=== PATIENT | female | born 1960 | race Caucasian/White ===

== ENCOUNTER 2020-09-30 12:23 | Outpatient (REF) | payer OTHER, SELFPAY ==
--- NOTE | 2020-09-30 | MM_ITS ---
EXAMINATION: MM SCREENING DIGITAL BREAST TOMOSYNTHESIS, BILATERAL CLINICAL INFORMATION: Screening. Asymptomatic. The lifetime risk of breast cancer based on the Tyrer-Cuzick Model is 5.8%. COMPARISON: Mammography: Of study of June 19, 2007 without imaging. TECHNIQUE: Digital breast tomosynthesis is performed in both the craniocaudal and mediolateral oblique views along with computer-aided detection (CAD). Synthesized 2D images are generated from the tomosynthesis. FINDINGS: There are scattered areas of fibroglandular density (ACR BI-RADS breast composition Category b). Within the middle aspect of the right breast 1 study inferior and the other measuring approximately 5 mm in diameter and lying between 3 and 4 cm from the nipple. Within the deep aspect of the left breast there are medial and lateral densities measuring approximately 5 mm in diameter. Spot compression films and probable ultrasound recommended bilaterally. MM/MM tomosynthesis screening BI IMPRESSION: Bilateral breast densities for further evaluation as described. ASSESSMENT: BI-RADS 0: Incomplete - Need Additional Imaging Evaluation RECOMMENDATION: 1. Additional views of the bilateral breasts 2. Targeted ultrasound if warranted after review of the additional views. 3. Radiology department staff will contact the patient for additional imaging. This patient's information was entered into a reminder system with a target due date for their next mammogram.
== END 2020-09-30 12:24 | disposition home or self-care (01) ==
LOC: HO.MAMMO 12:23
PROVIDERS: PCP Family Medicine; Visit Provider Family Medicine
DX: Z12.31 Encounter for screening mammogram for malignant neoplasm of breast (principal)
CPT/HCPCS: 77063; 77067

== ENCOUNTER 2020-10-17 11:52 | Outpatient (REF) | payer OTHER, SELFPAY ==
--- NOTE | 2020-10-17 12:06 | MM_ITS ---
EXAMINATION: MM DIAGNOSTIC DIGITAL BREAST TOMOSYNTHESIS, BILATERAL US DIAGNOSTIC ULTRASOUND BREAST, BILATERAL CLINICAL INFORMATION: Recall from mammography 09/30/2020 for bilateral asymmetric densities. Prior mammography 2006 purged. The lifetime risk of breast cancer based on the Tyrer-Cuzick Model is 6%. COMPARISON: Digital breast tomosynthesis 09/30/2020, ultrasound left breast 08/03/2011; report screening mammography (purged images) 06/19/2007. TECHNIQUE: Digital breast tomosynthesis is performed. Synthesized 2D images are generated from the tomosynthesis. The following views are obtained: Left spot CC x2, left spot MLO, right spot CC, right spot MLO. Ultrasound is performed targeted to the areas of recent imaging concern using grayscale imaging and color Doppler without and with harmonics. The left breast is imaged in 8:00 through 10:00 position. The right breast is imaged 2:00 through 4:00 and 9:00 through 10:00. FINDINGS: There are scattered areas of fibroglandular density (ACR BI-RADS breast composition Category b). Additional views left breast show no persistent nodular asymmetric density outer breast. Review of the recent mammography suggested intramammary node, not seen on the additional views. The nodule noted recently overlying the posterior medial left breast corresponds to a dermal lesion, confirmed with mole marker. Additional views right breast show fibronodular parenchymal pattern without significant isolated mass or architectural abnormality or focal duct ectasia. Ultrasound left breast demonstrates no cystic or solid mass, intramammary node, or focal duct ectasia. Ultrasound right breast demonstrates some scattered small cysts under 7 mm. No visible solid mass or architectural abnormality or focal duct ectasia. Results are discussed with the patient at time of visit. Patient notes prior more recent outside mammography at [facility] and possibly at [facility]. Radiology department staff will attempt to retrieve prior outside exams to allow for comparison in an addendum report. If the prior outside exams are unable to be retrieved, then bilateral follow-up diagnostic mammography would be suggested to confirm stability of otherwise new baseline mammography. MM/MM tomosynthesis diagnostic BI IMPRESSION: 1. Fibronodular parenchymal pattern without suspicious finding on additional imaging. 2. Incidental dermal lesion overlying posterior medial left breast corresponding to nodularity noted on recent screening mammography. ASSESSMENT: BI-RADS 3: Probably Benign RECOMMENDATION: 1. Radiology department will attempt to retrieve prior outside mammography to allow for comparison in an addendum report. 2. Otherwise, bilateral diagnostic mammography in 6 months. This patient's information was entered into a reminder system with a target due date for their next mammogram.
== END 2020-10-17 11:53 | disposition home or self-care (01) ==
LOC: HO.MAMMO 11:52
PROVIDERS: PCP Family Medicine; Visit Provider Family Medicine
DX: R92.8 Other abnormal and inconclusive findings on diagnostic imaging of breast (principal)
CPT/HCPCS: 76642; 77062; 77066

== ENCOUNTER → 2020-10-22 08:55 | Outpatient (BNVA) | payer OTHER, SELFPAY | PROVIDERS: Visit Provider Physician Assistant | DX: Z76.89 Persons encountering health services in other specified circumstances (principal) ==

== ENCOUNTER 2020-12-16 12:20 | Outpatient (REF) | payer MEDICARE, SELFPAY ==
--- NOTE | 2020-12-16 12:26 | XR_ITS ---
EXAMINATION: XR HIPS, BILATERAL CLINICAL INFORMATION: Pain. COMPARISON: None TECHNIQUE: Bilateral hips each 2 views. FINDINGS: RIGHT HIP: Normal alignment. No fracture or dislocation. Joint space is maintained. Visualized left hemipelvis is intact. LEFT HIP: Normal alignment. Joint space is maintained. No fracture or dislocation. Visualized pelvis is intact. XR/XR hip LT min 2V IMPRESSION: No evidence of acute osseous abnormality.
--- NOTE | 2020-12-16 12:26 | XR_ITS ---
EXAMINATION: XR HIPS, BILATERAL CLINICAL INFORMATION: Pain. COMPARISON: None TECHNIQUE: Bilateral hips each 2 views. FINDINGS: RIGHT HIP: Normal alignment. No fracture or dislocation. Joint space is maintained. Visualized left hemipelvis is intact. LEFT HIP: Normal alignment. Joint space is maintained. No fracture or dislocation. Visualized pelvis is intact. XR/XR hip RT min 2V IMPRESSION: No evidence of acute osseous abnormality.
== END 2020-12-16 12:21 | disposition home or self-care (01) ==
LOC: HO.XRAY 12:20
PROVIDERS: Visit Provider Family Medicine
DX: M25.551 Pain in right hip (principal); M25.552 Pain in left hip
CPT/HCPCS: 73502

== ENCOUNTER 2020-12-22 11:08 | Day surgery (SDC) | payer MEDICARE, SELFPAY ==
--- NOTE | 2020-12-19 10:33 | HO.ANESPROP2 ---
Documented by User: Mirian Cleveland 12/19/20 10:33 HPI - Anesthesia Eval Consult details Narrative: 60yo F for Upper Endoscopy and Colonoscopy [facility] Past Medical History Medical History Chronic GERD Family history of colon cancer in mother Family history of gastric cancer Neck fracture Family History Family History Mother Colon cancer Surgical History Surgical History H/O colonoscopy H/O: hysterectomy Social History Social History Smoking Status: Current every day smoker Tobacco Type: Cigarette Advance Directives: Yes Advance Directives Information Provided: Yes Advance Directives on File: No Current occupational status: disabled Meds Allergies Allergy/AdvReac Type Severity Reaction Status Date / Time No Known Allergies Allergy Verified 10/22/20 13:36 Home Medications Medication Instructions Recorded Confirmed Type cyclobenzaprine 5 mg tablet 5 mg PO BEDTIME 10/22/20 12/16/20 History omeprazole magnesium 20 mg 20 mg PO DAILY 10/22/20 12/16/20 History tablet,delayed release Exam Exam Date and Time: December 19, 2020 1033 Assessment and Plan Assessment Anesthesia Assessment: Chart Reviewed Documented by User: Kristin Cummings 12/22/20 11:43 [facility] Past Medical History Medical History Chronic GERD Family history of colon cancer in mother Family history of gastric cancer Neck fracture Family History Family History Mother Colon cancer Surgical History Surgical History H/O colonoscopy H/O: hysterectomy Social History Social History Smoking Status: Current every day smoker Tobacco Type: Cigarette Advance Directives: Yes Advance Directives Information Provided: Yes Advance Directives on File: No Current occupational status: disabled Meds Allergies Allergy/AdvReac Type Severity Reaction Status Date / Time No Known Allergies Allergy Verified 10/22/20 13:36 Home Medications Medication Instructions Recorded Confirmed Type cyclobenzaprine 5 mg tablet 5 mg PO BEDTIME 10/22/20 12/16/20 History omeprazole magnesium 20 mg 20 mg PO DAILY 10/22/20 12/16/20 History tablet,delayed release Exam Airway Mallampati Class: II TM Dist: >3cm Neck ROM: Full Assessment and Plan Assessment Anesthesia Assessment: Anesthesia Plan Discussed, Smoking Cess. Discussed and Chart Reviewed Final Anesthetic Review NPO: Yes ASA Class: II Final Preanesthetic Review: No Changes in Pt Med Stat, Meds/Allgs Chart Reviewed, Consent Obtained/Reviewed and Anes Risks/Benef Reviewed Patient Risk: Intermediate Procedure Risk: Low Assessment/Block/Sedation in SS: Assess/Block/Sedation-SS Anesthetic Plan Anesthetic Plan: MAC: Disposition: Standard PACU
[2020-12-22 11:31] VITALS: BP 100/60; PULSE 108; RESP 20; TEMP 36.7; O2SAT 95; BMI 20.5
--- NOTE | 2020-12-22 11:35 | W.PM.OPN ---
Operative Note Operative Note Date of Service: 12/25/20 Narrative: Pre-op diagnosis: Colon cancer screening, family history of colon cancer (Mom in her 50's or 60's), epigastric pain, family history of stomach cancer (mom in her 70's) Procedure: FLEXIBLE TRANSORAL UPPER GASTROINTESTINAL ENDOSCOPY WITH BIOPSIES AND COLONOSCOPY TO CECUM UPPER ENDOSCOPY Consent: Indications for the procedure and potential complications of bleeding, perforation, reaction to medications and missed diagnosis were discussed with the patient and informed consent was obtained. Instrument: Olympus GIF H 190 mid size upper endoscope Monitoring: Vital signs and clinical assessment, continuous EKG monitoring, Pulse oximetry, Carbon Dioxide monitoring and blood pressure monitoring were done throughout the procedure. Procedure: The patient was placed in the left lateral decubitis position and pre-procedure medications were administered and a bite block was placed. The endoscope was inserted into the mouth and advanced under direct vision to the third part of duodenum. A careful inspection was made as the upper endoscope was withdrawn including a retroflexed examination of the proximal stomach; Findings and interventions are described below. Findings: Esophagus: GE junction at 35. No esophagitis or Mclean's. Stomach: A 1.5 cms benign appearing antral nodule with central erosion in the pre-pyloric area - biopsied. Mild gastric erythema with a few antral erosions. Biopsies were obtained. Grade 2 flap valve on retroflexed examination of the cardia. Duodenum: Normal bulb and descending duodenum Intervention: Biopsies as noted above COLONOSCOPY PROCEDURE NOTE Consent: Indications for the procedure and potential complications of bleeding, perforation, reaction to medications and missed diagnosis were discussed with the patient and informed consent was obtained. Instrument: Olympus PCF H 190 L variable stiffness pediatric colonoscope Monitoring: Vital signs and clinical assessment, intermittent blood pressure monitoring, continuous EKG monitoring, Pulse oximetry and Carbon Dioxide monitoring were done throughout the procedure. Colon withdrawl time was 15 minutes. Procedure: The patient was placed in the left lateral decubitis position and pre-procedure medications were administered. After a digital rectal examination of the ano-rectum, the video colonoscope was inserted into the rectum and advanced through the colon to the cecum. The colonoscope was slowly withdrawn in a retrograde panoramic fashion and the colon mucosa was carefully examined including a retroflexed view of the rectum. Findings and interventions are described below. Procedure Difficulty: : Without difficulty Findings: Terminal Ileum: Not evaluated Cecum: Normal Ascending Colon: Normal Transverse Colon: Normal Descending Colon: Moderate diverticulosis. Sigmoid Colon: Severe diverticulosis with luminal narrowing Rectum: Normal Ano-rectum: Moderate internal hemorrhoids Colon preparation: Good after some irrigation Impression and Post Procedure Diagnosis: Endoscopy Findings STOMACH: A 1.5 cms benign appearing antral nodule with central erosion in the pre-pyloric area - biopsied. Mild gastric erythema with a few antral erosions. Colonoscopy Findings: No polyps were detected Moderate to severe diverticulosis seen in the left colon Moderate hemorrhoids on retroflexed exam. Plan: Await pathology results Patient has an appointment on 12/29/20 in the GI Clinic with [facility] [place]. Repeat Colonoscopy in 5 years due to positive family history. Above findings were reviewed with the patient Gastritis and diverticulosis handouts were given in the discharge area Surgeon: Sherry Serrano MD Anesthesia: MAC (Dr Cummings & Dr Loaiza) Estimated blood loss (mL): 0 Pathology: other (A. Gastric antrum, B. Gastric nodule) Condition: stable Disposition: PACU
--- NOTE | 2020-12-22 11:35 | MHC.SHP ---
Pre-Procedural Eval Section A The patient is an INPATIENT: No The History & Physical has been completed within 30 days and I have reviewed it.: No Section B Chief Complaint: screening,gerd Details of Present Illness: a 60-year-old female with family history of colon cancer (mom in her 50's or 60's) and stomach cancer (Mom in her 70's) with persistent acid reflux. She has intermittent nausea, appetite good. Normal bowel pattern. She had a colon oscopy several years ago not in [place].-no polyps- overdue- Blood work at pcp- reports normal- except elevated cholesterol Relevant Family History (Specify if Yes): Yes Relevant Social History: Tobacco Use Present Medications: see Short Stay Collaborative assessment Medical History: Significant History (Chronic GERD Family history of colon cancer in mother Family history of gastric cancer Neck fracture) History of Previous Operations: Relevant previous surgery/procedure and date(s) (Hysterectomy) Allergies: Allergies Allergy/AdvReac Type Severity Reaction Status Date / Time No Known Allergies Allergy Verified 10/22/20 13:36 Review of Systems Sugical H&P ROS: Negative: Constitution, Cardiovascular, Respiratory and Gastrointestinal Exam Surgical H&P Exam: Normal: Heart, Normal: Lungs and Normal: Extremities and Significant Findings: Abdomen (abdominal pain, dyspepsia) Plan Diagnosis/Plan: Unchanged I have reviewed the history and physical and performed a pertinent physical examination on my patient. No changes have occurred unless specified.
--- NOTE | 2020-12-22 12:12 | P.CONAN_ITS ---
[facility] Past Medical History Medical History Chronic GERD Family history of colon cancer in mother Family history of gastric cancer Neck fracture Family History Family History Mother Colon cancer Surgical History Surgical History H/O colonoscopy H/O: hysterectomy Social History Social History Household Members Other:: 1 Are you a primary memory care program director to a significant other at home: No Smoking Status: Current every day smoker Tobacco Type: Cigarette Packs Per Day: 0.5 Cigarettes Per Day: 10.0 Smoked in Last 30 Days: Yes Patient Interested in Nicotine Replacement: No Patient Given Instructions on How to Stop Smoking: No Second Hand Smoke Exposure: No Use of substances other than those prescribed or required for medical reasons: Yes Substance Use Frequency: Daily Have you been hit, kicked, punched, or otherwise hurt by someone within the past year? If so, by whom?: No Advance Directives: Yes Advance Directives Information Provided: Yes Advance Directives on File: Yes Advance Directives Date on File: 12/22/20 Recently lost weight without trying: No Current occupational status: disabled Meds Allergies Allergy/AdvReac Type Severity Reaction Status Date / Time No Known Allergies Allergy Verified 10/22/20 13:36 Home Medications Medication Instructions Recorded Confirmed Type cyclobenzaprine 5 mg tablet 5 mg PO BEDTIME 10/22/20 12/16/20 History omeprazole magnesium 20 mg 20 mg PO DAILY 10/22/20 12/16/20 History tablet,delayed release Exam Exam Date and Time: December 22, 2020 1212 Height,Weight and Vital Signs: Height 5 ft 3 in Weight 52.617 kg Last Vital Signs Temp 98.1 F 12/22/20 11:31 Pulse 108 H 12/22/20 11:31 Resp 20 12/22/20 11:31 BP 100/60 12/22/20 11:31 Pulse Ox 95 12/22/20 11:31 Airway Mallampati Class: II TM Dist: >3cm Neck ROM: Full Heart: RRR Lungs: CTA
[2020-12-22 12:31] VITALS: BP 90/59; PULSE 89; RESP 16; TEMP 36.7; O2SAT 100
--- NOTE | 2020-12-22 12:35 | HO.POSTANES ---
Post Anesthesia Evaluation Post Anesthesia Evaluation Vital Signs: Vital Signs Temp Pulse Resp BP Pulse Ox 12/22/20 11:31 98.1 F 108 H 20 100/60 95 Anesthesia: Monitored Mental Status: Awake Pain Control: Satisfactory Nausea/Vomiting: None Hydration: Adequate Anesthesia-Related Issues: No Anes. Related Issues
[2020-12-22 12:46] VITALS: BP 105/72; PULSE 85; RESP 17; TEMP 36.7; O2SAT 98
== END 2020-12-22 13:20 | disposition home or self-care (01) ==
PROVIDERS: PCP Family Medicine; Visit Provider Internal Medicine Gastroenterology
PROC: (CPT 43239; principal; 2020-12-22 11:40)
DX: Z12.11 Encounter for screening for malignant neoplasm of colon (principal); Z80.0 Family history of malignant neoplasm of digestive organs; K57.30 Diverticulosis of large intestine without perforation or abscess without bleeding; K64.8 Other hemorrhoids; K29.70 Gastritis, unspecified, without bleeding; K21.9 Gastro-esophageal reflux disease without esophagitis; K31.89 Other diseases of stomach and duodenum; F17.210 Nicotine dependence, cigarettes, uncomplicated; Z79.899 Other long term (current) drug therapy
CPT/HCPCS: 43239; G0121; 88305; 88342; J3010

== ENCOUNTER → 2020-12-29 08:49 | Outpatient (BNVA) | payer MEDICARE, SELFPAY | PROVIDERS: PCP Family Medicine; Visit Provider Physician Assistant | DX: Z13.89 Encounter for screening for other disorder (principal) | CPT/HCPCS: Q3014 ==

== ENCOUNTER 2023-10-03 23:41 | Emergency (ER) | payer MEDICARE, OTHER, SELFPAY ==
--- NOTE | ~2023-10-03 | CT_ITS ---
EXAMINATION: CT ABDOMEN AND PELVIS WITH CONTRAST CLINICAL INFORMATION: Left lower quadrant abdominal pain COMPARISON: None available. TECHNIQUE: Multidetector volumetric images were obtained from the superior aspect of the liver through the pubic symphysis following administration 85 mL of Omnipaque 350 intravenous contrast. Sagittal and coronal reformatted images were obtained on the technologist's workstation. Oral contrast: No This CT examination was performed using dose optimization techniques as appropriate, variously including the following: *Automated exposure control *Adjustment of mA and/or kV according to patient size (this includes techniques or standardized protocols for targeted exams where dose is matched to indication/reason for exam; i.e. extremities or head) *Use of iterative reconstruction technique DLP: 355 mGy-cm FINDINGS: LUNG BASES: The visualized lung bases are unremarkable. LIVER, GALLBLADDER, AND BILIARY TREE: The liver is normal in size, shape, and attenuation. No focal hepatic lesion or biliary ductal dilatation is present. The gallbladder is unremarkable with no evidence of radiopaque gallstones, gallbladder wall thickening, or obvious pericholecystic inflammatory changes. PANCREAS: Unremarkable. SPLEEN: Unremarkable. ADRENAL GLANDS: Unremarkable. KIDNEYS AND URETERS: Moderate left hydroureteronephrosis is present to the level of a 7 x 4 mm left mid ureteral calculus, located just above the level of the iliac crests. No intrarenal calculi are detected. The right kidney and ureter image normally. BLADDER: Unremarkable. GASTROINTESTINAL TRACT: The small and large bowel are unremarkable. The appendix is nonvisualized. ABDOMINAL WALL: No significant hernia is appreciated. LYMPH NODES: Normal. VASCULAR: Severe aortoiliac atherosclerosis is present with irregular plaque in the mid abdominal aorta. There is an infrarenal abdominal aortic aneurysm measuring 3.3 cm in maximal diameter. The proximal aortic lumen is narrowed to 13 x 12 mm at the level of the celiac origin. The right common iliac artery is markedly narrowed by plaque, with a luminal diameter of only 4 mm at the bifurcation. Plaque narrows the left proximal common iliac artery to 7 mm. PELVIC VISCERA: Unremarkable. OSSEOUS STRUCTURES: Moderate to advanced degenerative changes are evident in the lumbar spine. There are no suspicious bone lesions. CT/CT abdomen pelvis w IV con IMPRESSION: 1. Moderate left hydroureteronephrosis to the level of a 7-4 mm ovoid left mid ureteral calculus. 2. Advanced aortoiliac atherosclerosis, with irregular plaque in the upper and mid abdominal aorta and severe luminal narrowing of the right and to a lesser extent left proximal common iliac arteries. The proximal abdominal aorta is narrowed by atherosclerotic plaque. 3. Abdominal aortic aneurysm measuring 3.3 cm. Best practice recommendations include follow up every 3 years. Fleischner guidelines were followed.
[2023-10-03 23:49] VITALS: BP 136/78; BP 146/86; PULSE 91; PULSE 93; RESP 18; TEMP 36.6; O2SAT 100; O2SAT 98; BMI 18.3
[2023-10-04 00:07] LABS: MANUAL DIFF FLAG NO
[2023-10-04 00:09] LABS: Basophils Absolute Auto 0.1 X10*3/uL (0.0-0.2); Basophils Percent Auto 0.4 % (0-2); Eosinophils Absolute Auto 0.1 X10*3/uL (0.0-0.4); Eosinophils Percent Auto 0.5 % (0-4); Hematocrit 38.2 % (37.0-47.0); Hemoglobin 12.9 g/dl (12.0-16.0); Imm Gran Abs Auto 0.04 X10*3/uL (0.00-0.03); Imm Gran Pct Auto 0.3 % (0.0-0.4); Lymphocytes Absolute Auto 2.2 X10*3/uL (1.2-4.9); Lymphocytes Percent Auto 14.2 % (20-40); Mean Corpuscular HGB Conc 33.8 g/dl (31.0-35.0); Mean Corpuscular Hemoglobin 31.4 pg (27.0-33.0); Mean Corpuscular Volume 92.9 fL (80.0-98.0); Mean Platelet Volume 10.9 fL (9.4-12.3); Monocytes Absolute Auto 0.8 X10*3/uL (0.1-1.2); Monocytes Percent Auto 5.1 % (2-11); Neutrophils Absolute Auto 12.2 x10*3/uL (2.0-8.3); Neutrophils Percent Auto 79.5 % (45-73); Platelet Count 324 X10*3/uL (160-400); Red Blood Count 4.11 X10*6/uL (4.20-5.50); White Blood Count 15.3 X10*3/uL (4.8-10.8)
[2023-10-04] MEDS: ondansetron HCL 4 MG/2 ML VIAL IVPUSH ×2 (00:11→03:58)
--- NOTE | 2023-10-04 00:17 | PC.NURSE ---
Patient complaining of severe abdominal pain and keeps stating oh please help me, I can't stand this pain anymore. Provider made aware of patient requests for pain relief, no pain medications ordered at this time.
[2023-10-04 00:25] LABS: Alanine Aminotransferase 15 U/L (0-31); Albumin Level 4.4 g/dL (3.5-5.0); Alkaline Phosphatase 74 U/L (39-117); Anion Gap 16 (12-20); Aspartate Amino Transferase 18 U/L (5-31); Bilirubin Direct 0.2 mg/dL (0.0-0.5); Bilirubin Total 0.4 mg/dL (0.0-1.0); Blood Urea Nitrogen 20 mg/dL (9-16); Calcium 9.6 mg/dL (8.4-10.2); Carbon Dioxide 23 mmol/L (22-29); Chloride 108 mmol/L (96-108); Creatinine Clr Calc Pharmacy 41.6; Estimated Glomerular Filt Rate 55; Glucose Random 208 mg/dL (60-115); Lipase 11 U/L (8-78); Potassium 3.8 mmol/L (3.3-5.1); Sodium 143 mmol/L (135-145); Total Protein 7.6 g/dL (6.5-8.0)
--- NOTE | 2023-10-04 04:10 | PC.NURSE ---
pt stated pablo previously help with sx requesting more; notified Dr. small who put in order; pt medicated per jan. ambulatory to bathroom with steady gait. able to provide urine sample for ua; sent to lab.
[2023-10-04 04:30] LABS: Appearance Urine Clear; Color Urine Yellow; Glucose Urine UA Negative (Negative); Leukocyte Esterase Urine Trace (Negative); Nitrite Urine Negative (Negative); UMIC TRIGGER UACC YES; Urine Blood Large (3+) (Negative); Urine Ketones Trace mg/dL (Negative); Urine Protein 30 (1+) mg/dL (Neg-Trace)
[2023-10-04 04:33] VITALS: BP 145/75; PULSE 93; RESP 17; TEMP 36.7; O2SAT 98
[2023-10-04 04:34] LABS: Bacteria Urine None Seen (None Seen); Hyaline Casts Urine 0-2 /LPF (0-2); RBC Urine >20 /HPF (0-2); Squamous Epithelial Cell Urine 0-2 /HPF (0-2); UACC Culture Trigger YES
--- NOTE | 2023-10-04 06:51 | ED.GENADULT ---
HPI - General Adult General Chief complaint: Abdominal Pain Stated complaint: abd pain Time Seen by Provider: 10/04/23 06:42 Source: patient Mode of arrival: ambulatory Limitations: no limitations History of Present Illness HPI narrative: 62 year old female hx of diverticulitis, AAA, kidney dense for evaluation of the left lower abdominal pain status post dinner last night, patient had an episode of vomiting after she ate, since then has been having constant pain to left lower quadrant with radiation to left flank region. Pain intermittent and fluctuates in intensity. Patient reports associated constipation, nausea. Denies urinary symptoms, chest pain, shortness of breath, headache, vision changes, dizziness, weakness, fevers, chills. Related Data Home Medications Medication Instructions Recorded Confirmed cyclobenzaprine 5 mg tablet 5 mg PO BEDTIME 10/22/20 12/29/20 omeprazole magnesium 20 mg 20 mg PO DAILY 10/22/20 12/29/20 tablet,delayed release (Prilosec OTC) Previous Rx's Medication Instructions Recorded docusate sodium 100 mg capsule 200 mg (2 x 100 mg) PO BEDTIME #60 12/29/20 (Colace) caps methylcellulose (laxative) 500 mg 500 mg PO BID #60 tabs 12/29/20 tablet (Citrucel) polyethylene glycol 3350 17 gram 17 g PO DAILY #30 ea 12/29/20 oral powder packet (Miralax) cefuroxime axetil 250 mg tablet 500 mg (2 x 250 mg) PO BID 5 days 10/04/23 #20 tabs ketorolac 10 mg tablet 10 mg PO TID PRN pain 5 days #15 10/04/23 tabs ondansetron 4 mg disintegrating 4 mg PO Q6H PRN nausea and 10/04/23 tablet vomiting #14 tabs prednisone 20 mg tablet 20 mg PO DAILY 5 days #5 tabs 10/04/23 tamsulosin 0.4 mg capsule (Flomax) 0.4 mg PO DAILY 2 weeks #14 caps 10/04/23 Allergies Allergy/AdvReac Type Severity Reaction Status Date / Time tramadol Allergy Unknown Verified 10/03/23 23:57 Review of Systems Review of Systems: Constitutional : No Weight loss, No Fever, No Chills, No Fatigue, No Malaise ENT/Mouth : No sore throat, No Rhinorrhea Eyes: No Eye Pain, No Swelling, No Redness Cardiovascular : No Chest Pain, No SOB, No Dyspnea on Exertion, No Orthopnea, No Edema, No Palpitations Respiratory : No Cough, No Sputum, No Wheezing Gastrointestinal : + Nausea, No Vomiting, No Diarrhea, No Constipation, + abdominal Pain, No Hematochezia, No Melena Genitourinary : No Dysuria, No Urinary Frequency, No Hematuria, Musculoskeletal : No joint pain, No Myalgias, No Joint Swelling Skin : No Skin Lesions, No rash Neuro : No Weakness, No Numbness, No Dizziness, No Headache Psych : No Anxiety/Panic, No Depression All other systems reviewed and are negative Yes all other systems are reviewed and are negative [facility] Past Medical History Attestation statement: The following information was validated with the patient. Source: old records reviewed and nursing notes reviewed Medical History Neck fracture Family history of gastric cancer Chronic GERD Family history of colon cancer in mother Surgical History H/O colonoscopy H/O: hysterectomy Family History Family History Mother Colon cancer Social History Social History Household Members Other:: 1 Are you a primary landcare officer to a significant other at home: No Cigarette Packs Per Day: 0.5 Cigarettes Per Day: 10.0 Second Hand Smoke Exposure: No Advance Directives: Yes Advance Directives on File: Yes Advance Directives Date on File: 12/22/20 Current occupational status: disabled Physical Exam ED Vital Signs: Vital Signs - 24 hr 10/03/23 23:49 10/04/23 04:33 10/04/23 07:47 Temperature 97.8 F 98.0 F 98.1 F Pulse Rate 93 93 99 Respiratory Rate 18 17 16 Blood Pressure 146/86 H 145/75 H 131/79 Pulse Oximetry 100 98 95 Oxygen Delivery Method Room Air Room Air Room Air BMI result Body Mass Index 18.3 vss Appearance: Alert.? Oriented X3.? No acute distress.? Head: Normocephalic, atraumatic, no step-offs or deformities Eyes: Pupils equal, round and reactive to light.? CVS: Normal heart rate and rhythm.? Pulses normal.? Respiratory: No respiratory distress.? Breath sounds normal.? Abdomen: Soft and + TTP to LLQ .? Skin: Skin warm and dry.? Normal skin color.? Normal skin turgor.? Extremities: No lower extremity edema.? No calf ttp. 5/5 strength to bilateral upper and lower extremities Back: No midline tenderness, no C-spine tenderness, full range of motion, + CVA tenderness on left Neuro: Oriented X 3.? No motor deficit.? No sensory deficit. CN 2-12 intact Course Reevaluation(s) Reevaluation #1: CBC with slight leukocytosis 15.5, chemistry with slightly elevated BUN, likely secondary to poor p.o. intake/dehydration will give IV fluids at this time. UA without infection however does have blood in white blood cells. Pending CT scan with contrast to rule out diverticulitis. Will give something for pain. Time: 09:00 Reevaluation #2: CT abdomen and pelvis showing moderate left hydroureteronephrosis to the level of a 7-4 mm left mid ireteral calculus. Advance aortoiliac arthrosclerosis noted. Patient made aware of these findings. Also abdominal aortic aneurysm of 3.3 cm recommend follow-up every 3 years. Patient made aware findings Time: 09:47 Reevaluation #3: Urology Dr. Tanner recommend to get patient comfortable in send her home with Zofran, prednisone, Flomax and cover her with Ceftin 500 mg p.o. b.i.d. x5 days. She will try to get patient in for or Tuesday of this week and schedule her to go to the OR. Educated patient on diagnosis and treatment plan, answered all question, patient verbalizes understanding. At this time patient will be discharged home, advised to return with new or worsening symptoms. Educated on worrisome signs and symptoms and when to return. At this time I feel comfortable discharge home. Time: 10:10 Medications Administered Discontinued Medications Generic Name Dose Route Start Last Admin Trade Name Freq PRN Reason Stop Dose Admin Sodium Chloride 1,000 mls @ 999 mls/hr 10/04/23 07:00 10/04/23 07:16 Ns IV 10/04/23 08:00 999 mls/hr .Q1H1M GABBY Administration Ketorolac Tromethamine 15 mg 10/04/23 06:55 10/04/23 07:15 Ketorolac Tromethamine 15 Mg/Ml Vial IVPUSH 10/04/23 06:56 15 mg ONCE ONE Administration Ondansetron HCl 4 mg 10/04/23 00:06 10/04/23 00:11 Ondansetron Hcl 4 Mg/2 Ml Vial IVPUSH 10/04/23 00:07 4 mg ONCE ONE Administration Ondansetron HCl 4 mg 10/04/23 03:53 10/04/23 03:58 Ondansetron Hcl 4 Mg/2 Ml Vial IVPUSH 10/04/23 03:54 4 mg ONCE ONE Administration Medical Decision Making Medical Decision Making [facility] Narrative: 0652 62 yo f presents w/ LLQ tenderness since last night PE w/ llq tenderness & left flank tenderness. Concerns for diverticulitis versus diverticulosis versus kidney stone. Unlikely obstructing uropathy, pyelonephritis, abdominal aortic aneurysm, acute abdomen, obstruction, appendicitis, pancreatitis, diverticulitis. Will rule out electrolyte derangements and UTI. Plan labs, imaging, urine peer Differential Diagnosis Differential Diagnoses: The differential diagnosis associated with the presentation includes Concerns for diverticulitis versus diverticulosis versus kidney stone. Unlikely obstructing uropathy, pyelonephritis, abdominal aortic aneurysm, acute abdomen, obstruction, appendicitis, pancreatitis, diverticulitis. Will rule out electrolyte derangements and UTI. Admission/Observation Consideration of admission/observation: Escalation of care including admission/observation considered Consult Healthcare Provider Management of the patient was discussed with: Vehicle Modification Technician Lab Data [facility] Lab Attestation statement: I reviewed the patient's lab results. 10/04/23 00:03 10/04/23 00:03 Labs: Lab Results 10/04/23 10/04/23 Range/Units 00:03 04:11 WBC 15.3 H (4.8-10.8) X10*3/uL RBC 4.11 L (4.20-5.50) X10*6/uL Hgb 12.9 (12.0-16.0) g/dl Hct 38.2 (37.0-47.0) % MCV 92.9 (80.0-98.0) fL MCH 31.4 (27.0-33.0) pg MCHC 33.8 (31.0-35.0) g/dl RDW 12.0 (11.0-16.0) % Plt Count 324 (160-400) X10*3/uL MPV 10.9 (9.4-12.3) fL Immature Gran % (Auto) 0.3 (0.0-0.4) % Neut % (Auto) 79.5 H (45-73) % Lymph % (Auto) 14.2 L (20-40) % Camp % (Auto) 5.1 (2-11) % Eos % (Auto) 0.5 (0-4) % Baso % (Auto) 0.4 (0-2) % Lymph # (Auto) 2.2 (1.2-4.9) X10*3/uL [place] # (Auto) 0.8 (0.1-1.2) X10*3/uL Eos # (Auto) 0.1 (0.0-0.4) X10*3/uL Baso # (Auto) 0.1 (0.0-0.2) X10*3/uL Abs Immat Gran (auto) 0.04 H (0.00-0.03) X10*3/uL Absolute Neuts (auto) 12.2 H (2.0-8.3) x10*3/uL Absolute Nucleated RBC 0.000 (0.0-0.012) X10*3/uL Nucleated RBC % (auto) 0.0 (0.0-0.2) /100WBC Sodium 143 (135-145) mmol/L Potassium 3.8 (3.3-5.1) mmol/L Chloride 108 (96-108) mmol/L Carbon Dioxide 23 (22-29) mmol/L Anion Gap 16 (12-20) BUN 20 H (9-16) mg/dL Creatinine 1.01 (0.5-1.4) mg/dL Estim Creat Clear Calc 41.6 Estimated GFR 55 Random Glucose 208 H (60-115) mg/dL Calcium 9.6 (8.4-10.2) mg/dL Total Bilirubin 0.4 (0.0-1.0) mg/dL Direct Bilirubin 0.2 (0.0-0.5) mg/dL AST 18 (5-31) U/L ALT 15 (0-31) U/L Alkaline Phosphatase 74 (39-117) U/L Total Protein 7.6 (6.5-8.0) g/dL Albumin 4.4 (3.5-5.0) g/dL Lipase 11 (8-78) U/L Urine Color Yellow Urine Appearance Clear Urine pH 7.0 (5.0-9.0) Ur Specific [place] 1.020 (1.005-1.025) Urine Protein 30 (1+) H (Neg-Trace) mg/dL Urine Glucose (UA) Negative (Negative) mg/dL Urine Ketones Trace (Negative) mg/dL Urine Blood Large (3+) H (Negative) Urine Nitrite Negative (Negative) Ur Leukocyte Esterase Trace H (Negative) Urine RBC >20 H (0-2) /HPF Urine WBC 6-10 H (0-5) /HPF Ur Squamous Epith Cells 0-2 (0-2) /HPF Urine Bacteria None Seen (None Seen) Hyaline Casts 0-2 (0-2) /LPF Independent Interpretation I performed an independent interpretation of an: CT Scan Radiology Impression Discussion of test interpretation with radiology: I have reviewed the radiologist's reading. Chronic Conditions Patient?s care impacted by: Other (kidney stones, diverticulitis ) Critical Care Time Critical Care Time Critical Care Time: Yes Total Critical Care Time: 35 Attestation: I attest to this time spent taking care of the patient, obtaining history, physical, reviewing labs, imaging, speaking to my attending, speaking to specialist. Discharge Plan Discharge Clinical Impression: Hydroureteronephrosis, Kidney calculi, Atherosclerosis, Abdominal aortic aneurysm Patient Disposition: Home, Self-Care Instructions: Hydronephrosis (ED) Additional Instructions: Take your medications as prescribed. If you were prescribed antibiotics today, it is important that you take your medication to their entirety, do not skip any doses, do not finish them early. Follow-up with your primary care provider this week. Call urology today to schedule an appointment Return to the emergency department with new or worsening symptoms. Such as fevers, chills, chest pain, shortness of breath, nausea, vomiting, dizziness, headache, vision changes, lethargy In case of emergency call 911 Toradol has been sent to your pharmacy, you tolerated this well in the department. Please take this as prescribed do not take this with ibuprofen, or other NSAIDs, do not mix this with alcohol. Side effects of this medication including increased risk for bleeding and possible kidney injury. Happy Early Birthday! CT/CT abdomen pelvis w IV con IMPRESSION: 1. Moderate left hydroureteronephrosis to the level of a 7-4 mm ovoid left mid ureteral calculus. 2. Advanced aortoiliac atherosclerosis, with irregular plaque in the upper and mid abdominal aorta and severe luminal narrowing of the right and to a lesser extent left proximal common iliac arteries. The proximal abdominal aorta is narrowed by atherosclerotic plaque. 3. Abdominal aortic aneurysm measuring 3.3 cm. Best practice recommendations include follow up every 3 years. Fleischner guidelines were followed. Prescriptions: New cefuroxime axetil 250 mg tablet 500 mg PO BID 5 Days Qty: 20 0RF tamsulosin [Flomax] 0.4 mg capsule 0.4 mg PO DAILY 14 Days Qty: 14 0RF ketorolac 10 mg tablet 10 mg PO TID PRN (Reason: pain) 5 Days Qty: 15 0RF ondansetron 4 mg tablet,disintegrating 4 mg PO Q6H PRN (Reason: nausea and vomiting) Qty: 14 0RF prednisone 20 mg tablet 20 mg PO DAILY 5 Days Qty: 5 0RF No Action docusate sodium [Colace] 100 mg capsule 200 mg PO BEDTIME Qty: 60 5RF polyethylene glycol 3350 [Miralax] 17 gram powder in packet 17 g PO DAILY Qty: 30 5RF Citrucel 500 mg tablet 500 mg PO BID Qty: 60 5RF omeprazole magnesium [Prilosec OTC] 20 mg tablet,delayed release (DR/EC) 20 mg PO DAILY cyclobenzaprine 5 mg tablet 5 mg PO BEDTIME Referrals: [facility] [Provider Group] - 1 day Keke Bautista MD [Primary Care Provider] - 2 days Stand Alone Forms: Work/School Release
[2023-10-04] MEDS: Ketorolac Tromethamine 15 MG/ML VIAL IVPUSH (07:15)
[2023-10-04] MEDS: 0.9 % Sodium Chloride 1,000 ML 999 ML IV ×2 (07:16→10:38)
--- NOTE | 2023-10-04 07:19 | PC.NURSE ---
patient resting in bed, medicated per JAN. respirations equal and unlabored, skin PWD
[2023-10-04 07:47] VITALS: BP 131/79; PULSE 99; RESP 16; TEMP 36.7; O2SAT 95
[2023-10-04] MEDS: cefuroxime axetiL 500 MG TABLET PO (10:38)
[2023-10-04] MEDS: Tamsulosin HCL 0.4 MG CAPSULE PO (10:38)
== END 2023-10-04 13:00 | disposition home or self-care (01) ==
PROVIDERS: Emergency Provider Student in an Organized Health Care Education/Training Program; PCP Family Medicine
DX: N13.2 Hydronephrosis with renal and ureteral calculous obstruction (principal); I71.40 Abdominal aortic aneurysm, without rupture, unspecified; I70.0 Atherosclerosis of aorta; R10.32 Left lower quadrant pain; F17.210 Nicotine dependence, cigarettes, uncomplicated
CPT/HCPCS: 36415; 74177; 80048; 80076; 81001; 83690; 85025; 87086; 96361; 96374; 96375; 96376; 99284; J1885; J2405

== ENCOUNTER 2023-10-06 09:00 | Outpatient (AMB) | payer MEDICARE, SELFPAY ==
--- NOTE | 2023-10-06 09:01 | A.OFFVIS_ITS ---
Intake Intake Visit Reasons: discuss surgery Intake Note: NEW Patient presents today to established treatment for Kidney Stones and to discuss surgery: Meds- Ta,sulosin Allergies to Antibiotic- No Known Allergies Blood Thinner- None Patient Symptoms: Pain It Infrastructure Consultant Required: No Accompanied by: Self / Same As Patient Allergies tramadol Allergy (Verified 10/06/23 09:04) Unknown Medication List - Last Reconciled 10/06/23 by Emma Sinclair MD cefuroxime axetil 500 mg (2 x 250 mg) PO BID 5 days cyclobenzaprine 5 mg PO BEDTIME docusate sodium (Colace) 200 mg (2 x 100 mg) PO BEDTIME hydromorphone (Dilaudid) 2 mg PO Q4-6H ketorolac 10 mg PO TID PRN 5 days methylcellulose (laxative) (Citrucel) 500 mg PO BID omeprazole magnesium (Prilosec OTC) 20 mg PO DAILY ondansetron 4 mg PO Q6H PRN ondansetron 8 mg PO Q6-8H polyethylene glycol 3350 (Miralax) 17 grams PO DAILY prednisone 20 mg PO DAILY 5 days tamsulosin (Flomax) 0.4 mg PO DAILY 2 weeks HPI HPI Comments History of Present Illness Details Silvia is a 63-year-old female who presents today to the office to established treatment for kidney stones and to discuss surgery. 10/06/2023? She is here today to established treatment for kidney stones and to discuss surgery. States she passed a kidney stone about 20 years ago. Patient has a past medical history of kidney stones, nicotine use, and history of hysterectomy. Disabled due to neck fracture. She was seen in ER and evaluated due to left sided abdominal pain. Patient states that she was treated with torodal which did relieve her pain. She reports mild nausea. CT scan was reviewed and noted a 7x4mm left mid ureteral stone, no renal calculi noted. Plan: Dilaudid and Zofran prescribed. Cystoscopy, Left ureteroscopy, laser lithotripsy of stone and stent was discussed to scheduled. Risks discussed included but not limited to, possible need to repeat procedure i f stone is not completely fragmented, Irritative voiding symptoms, bladder spasms, urgency, blood in urine. [facility] Medical History Neck fracture Family history of gastric cancer Chronic GERD Family history of colon cancer in mother Surgical History H/O colonoscopy H/O: hysterectomy Family History Mother Colon cancer Social History Household Members Other:: 1 Are you a primary school child care attendant to a significant other at home: No Cigarette Packs Per Day: 0.5 Cigarettes Per Day: 10.0 Second Hand Smoke Exposure: No Advance Directives Date on File: 12/22/20 Current occupational status: disabled Review of Systems Const All systems reviewed & are unremarkable except as noted in HPI and below Reports no additional complaints Eyes Reports no additional complaints ENT Reports no additional complaints Card Denies dyspnea Resp Denies cough and Denies dyspnea GI Reports no additional complaints Reports no additional complaints Musc Reports no additional complaints Skin/Breast Denies rash and Denies unusual bruising Neuro Reports no additional complaints Psych Reports no additional complaints Endo Reports no additional complaints Kapil/Lymph Reports no additional complaints Aller/Immun Reports no additional complaints Physical Exam Const General: cooperative, healthy appearing and no acute distress Orientation/consciousness: patient oriented x3 HEENT Head: Yes normal to inspection, Yes normocephalic and Yes atraumatic Eyes Conjunctivae: conjunctivae normal Neck Neck: Yes normal visual inspection and Yes trachea midline Chest Chest palpation & inspection: normal inspection of the chest Resp Effort & Inspection: normal respiratory effort Cardio Rate: regular rate GI Inspection: Yes normal to inspection General: Yes CVA tenderness on the left Back/Spine/Pelvis Back: CVA tenderness Skin General skin exam: no rashes or lesions noted Neuro General: patient oriented x3 Extrem General: No edema Psych Appearance: grossly normal Results Reviewed Results Reviewed: Date of Service: 10/04/23 EXAMINATION: CT ABDOMEN AND PELVIS WITH CONTRAST CLINICAL INFORMATION: Left lower quadrant abdominal pain COMPARISON: None available. FINDINGS: LUNG BASES: The visualized lung bases are unremarkable. LIVER, GALLBLADDER, AND BILIARY TREE: The liver is normal in size, shape, and attenuation. No focal hepatic lesion or biliary ductal dilatation is present. The gallbladder is unremarkable with no evidence of radiopaque gallstones, gallbladder wall thickening, or obvious pericholecystic inflammatory changes. PANCREAS: Unremarkable. SPLEEN: Unremarkable. ADRENAL GLANDS: Unremarkable. KIDNEYS AND URETERS: Moderate left hydroureteronephrosis is present to the level of a 7 x 4 mm left mid ureteral calculus, located just above the level of the iliac crests. No intrarenal calculi are detected. The right kidney and ureter image normally. BLADDER: Unremarkable. GASTROINTESTINAL TRACT: The small and large bowel are unremarkable. The appendix is nonvisualized. ABDOMINAL WALL: No significant hernia is appreciated. LYMPH NODES: Normal. VASCULAR: Severe aortoiliac atherosclerosis is present with irregular plaque in the mid abdominal aorta. There is an infrarenal abdominal aortic aneurysm measuring 3.3 cm in maximal diameter. The proximal aortic lumen is narrowed to 13 x 12 mm at the level of the celiac origin. The right common iliac artery is markedly narrowed by plaque, with a luminal diameter of only 4 mm at the bifurcation. Plaque narrows the left proximal common iliac artery to 7 mm. PELVIC VISCERA: Unremarkable. OSSEOUS STRUCTURES: Moderate to advanced degenerative changes are evident in the lumbar spine. There are no suspicious bone lesions. IMPRESSION: 1. Moderate left hydroureteronephrosis to the level of a 7-4 mm ovoid left mid ureteral calculus. 2. Advanced aortoiliac atherosclerosis, with irregular plaque in the upper and mid abdominal aorta and severe luminal narrowing of the right and to a lesser extent left proximal common iliac arteries. The proximal abdominal aorta is narrowed by atherosclerotic plaque. 3. Abdominal aortic aneurysm measuring 3.3 cm. Best practice recommendations include follow up every 3 years Assessment & Plan Assessment & Plan (1) Ureteral calculus, left: Code(s): N20.1 - Calculus of ureter (2) Hydronephrosis: Code(s): N13.30 - Unspecified hydronephrosis (3) Flank pain: Code(s): R10.9 - Unspecified abdominal pain Plan Left ureteroscopy, laser lithotripsy of stone and stent was discussed to scheduled. Medications: New hydromorphone (Dilaudid) Partial Fill upon patient request. 2 mg PO Q4-6H 12 tabs 0RF pain ondansetron 8 mg PO Q6-8H 24 tabs 0RF Patient Instructions: The patient had an opportunity to ask questions regarding treatment plan. All questions were answered. Imaging, Laboratory studies and physical exam results were discussed and reviewed in detail. No major barriers to understanding were identified. The patient expressed understanding and agreement with the above treatment plan. The patient is aware they should contact our office by phone for worsening of their current condition or the appearance of new symptoms. Compliance is encouraged with any medications and followup testing that is ordered. It is a privilege to be allowed the opportunity to participate in the urologic care of your patient. If you have any questions or concerns regarding treatment for the above conditions please do not hesitate to contact me. The office telephone contact is [phone]. This note is constructed in part using voice recognition software. While every effort has been made to ensure accuracy security incident handler errors may have been included. Yours sincerely, Emma Sinclair MD Coding Level of Care Code New Pt Level 4 (18202) Diagnoses Ureteral calculus, left N20.1 Hydronephrosis N13.30 Flank pain R10.9
== END 2023-10-06 09:21 | disposition home or self-care (01) ==
PROVIDERS: PCP Family Medicine; Visit Provider Urology
DX: N20.1 Calculus of ureter (principal); N13.30 Unspecified hydronephrosis; R10.9 Unspecified abdominal pain
CPT/HCPCS: 99204

== ENCOUNTER → 2023-10-06 09:00 | Outpatient (BNVA) | payer MEDICARE, SELFPAY | PROVIDERS: PCP Family Medicine; Visit Provider Urology | DX: N20.1 Calculus of ureter (principal); N13.30 Unspecified hydronephrosis; R10.9 Unspecified abdominal pain | CPT/HCPCS: 99202 ==

== ENCOUNTER → 2023-10-07 14:07 | Day surgery (SDC) | payer MEDICARE, OTHER, SELFPAY ==
--- NOTE | ~2023-10-07 | FL_ITS ---
EXAMINATION: XR FLUOROSCOPY WITH IMAGES CLINICAL INFORMATION: Cystoscopy, ureteroscopy, retro, laser, left side. COMPARISON: None available. TECHNIQUE: Fluoroscopy Supervised By: Dr. Sinclair. Fluoroscopy Time: 32.2 seconds. Cumulative Dose: 4.10 mGy. DAP: Not available. Images: 5. FINDINGS: There is left hydronephrosis. Final images demonstrate a left internal ureteral stent in satisfactory position. FL/FL guidance in OR IMPRESSION: Fluoroscopic guidance for left internal ureteral stent placement.
[2023-10-07 15:24] VITALS: BMI 19.1
[2023-10-07 15:31] VITALS: BP 124/76; PULSE 95; RESP 18; TEMP 38.1; O2SAT 96
--- NOTE | 2023-10-07 16:06 | P.CONAN_ITS ---
HPI - Anesthesia Eval Consult details Narrative: for cysto, stent PMFSH Active Problems Active Problems: All Active Problems (Updated 10/06/23 @ 10:20 by Emma Sinclair MD) Flank pain (Acute) Hydronephrosis (Acute) Ureteral calculus, left (Acute) Diverticulosis of colon (Acute) Encounter for screening colonoscopy (Acute) Chronic GERD (Acute) Past Medical History Medical History Neck fracture Family history of gastric cancer Chronic GERD Family history of colon cancer in mother Family History Family History Mother Colon cancer Family history of problems with anesthesia: No Surgical History Surgical History H/O colonoscopy H/O: hysterectomy History of Problems with Anesthesia: No Social History Social History Household Members Other:: 1 Are you a primary critical care physician assistant to a significant other at home: No Patient Tobacco Use Status: Current everyday Tobacco user Tobacco use type: Cigarette Cigarette Packs Per Day: 0.5 Cigarettes Per Day: 10.0 Second Hand Smoke Exposure: No Use of substances other than those prescribed or required for medical reasons: No Substance Use Type Other:: smoked Substance Use Frequency: Daily Are you DNR?: No Advance Directives: No Advance Directives Information Provided: Yes Advance Directives Date on File: 12/22/20 Current occupational status: disabled Meds Allergies Allergy/AdvReac Type Severity Reaction Status Date / Time tramadol Allergy Unknown Verified 10/06/23 09:04 Home Medications Medication Instructions Recorded Confirmed Last Taken Type cyclobenzaprine 5 mg tablet 5 mg PO BEDTIME 10/22/20 10/06/23 Unknown History omeprazole magnesium 20 mg 20 mg PO DAILY 10/22/20 10/06/23 Unknown History tablet,delayed release (Prilosec OTC) Exam Exam Date and Time: October 07, 2023 1606 Height,Weight and Vital Signs: Height 5 ft 3 in Weight 48.988 kg Last Vital Signs Temp 100.5 F H 10/07/23 15:31 Pulse 95 10/07/23 15:31 Resp 18 10/07/23 15:31 BP 124/76 10/07/23 15:31 Pulse Ox 96 10/07/23 15:31 O2 Del Method Room Air 10/07/23 15:31 Airway Mallampati Class: I TM Dist: >3cm Neck ROM: Full Denture: Upper and Lower Heart: ok Lungs: ok Assessment and Plan Assessment Anesthesia Assessment: Anesthesia Plan Discussed and Chart Reviewed Final Anesthetic Review Family History of Problems with Anesthesia: No History of Problems with Anesthesia: No NPO: Yes ASA Class: II and Emergency Final Preanesthetic Review: No Changes in Pt Med Stat, Meds/Allgs Chart Reviewed, Consent Obtained/Reviewed and Anes Risks/Benef Reviewed Patient Risk: Intermediate Procedure Risk: Low Anesthetic Plan Anesthetic Plan: GA and Agree w/ Assess. and Plan Disposition: Standard PACU
--- NOTE | 2023-10-07 16:15 | MHC.SHP ---
Pre-Procedural Eval Section A Date of Service: 10/07/23 The patient is an INPATIENT: No The History & Physical has been completed within 30 days and I have reviewed it.: Yes Section B Chief Complaint: Calculus of kidney Allergies: Allergies Allergy/AdvReac Type Severity Reaction Status Date / Time tramadol Allergy Unknown Verified 10/06/23 09:04 Plan Diagnosis/Plan: Unchanged I have reviewed the history and physical and performed a pertinent physical examination on my patient. No changes have occurred unless specified. Plan for Cystoscopy, Left ureteroscopy, possible laser lithotripsy, possible ureteral stent. Risks discussed included but not limited to, possible need to repeat procedure if stone is not completely fragmented, Irritative voiding symptoms, bladder spasms, urgency, blood in urine. Time Spent With Patient Time: Total time managing care of this patient today ____ minutes.
[2023-10-07 17:40] VITALS: BP 104/69; PULSE 96; RESP 14; TEMP 37.7; O2SAT 98
[2023-10-07 17:45] VITALS: BP 101/61; PULSE 91; RESP 16; O2SAT 98
[2023-10-07 17:50] VITALS: BP 104/59; PULSE 99; RESP 16; O2SAT 97
--- NOTE | 2023-10-07 17:51 | W.PM.OPN ---
Operative Note Operative Note Date of Service: 10/07/23 Narrative: PreOperative Diagnosis:?? Left ureteral stone Post Operative Diagnosis:?? Left ureteral stone Procedure: - cystoscopy, left retrograde, left ureteroscopy laser lithotripsy stent insertion, 6 Greenlandic by 26 cm Surgeon:?Dr Emma Sinclair Anesthesia:? General Indications for procedure: Procedure: After informed consent was verified the patient was brought to the operating placed on the OR table in supine position.? General Anesthesia was administered per protocol.? The patient was placed in lithotomy position, prepped and draped in the usual sterile fashion.? Safety pause time-out and side of surgery confirmed.? Antibiotics confirmed. 2% lidocaine jelly 10 mL was passed transurethrally. A 22 Greenlandic cystoscope was inserted transurethrally, The bladder was visualized.? Both ureteric orifices were in normal position. An open-ended ureteral catheter was passed into the left ureteral orifice and a retrograde examination was performed. There was a filling defect in the left ureter and dilatation of the proximal ureter and renal pelvis and calices. A guidewire was passed through the ureteral catheter into the kidney. The balloon dilator size 12 fr x 4 cm was passed over the guide -wire the balloon was inflated to 10 mmHg and the intramural ureter was dilated for 45 seconds. The balloon was deflated and removed. After removing the balloon dilator a 2nd guidewire was then passed into the kidney to use as a safety. The cystoscope was removed, leaving both guidewires in place. One guidewire was used as the safety and was attached to the draping. The semi rigid ureteroscope was passed over one of the guidewires to the level of the stone in the ureter. One guidewire was then removed. Laser lithotripsy of the stone was done using the 365 fiber with a settings 0.6 joules by 6 hertz. There was good fragmentation of the stone. The 0 degree basket was passed through the ureteroscope, to remove stone fragments to send for analysis. The ureteroscope was removed. The cystoscope was passed over the safety guidewire. A? 6 Greenlandic by 26 cm stent was placed into the ureter and renal pelvis under a combination of fluoroscopy and direct visualization. The bladder was emptied.? The rigid cystoscope was removed. ? The patient tolerated the procedure well and was brought to the recovery room in stable condition. Complications: None Drains: Ureteral stent as dictated above
[2023-10-07 17:55] VITALS: BP 123/76; PULSE 90; RESP 16; O2SAT 97
[2023-10-07 18:10] VITALS: BP 128/70; PULSE 84; RESP 20; O2SAT 97
== END | disposition home or self-care (01) ==
PROVIDERS: PCP Family Medicine; Visit Provider Urology
PROC: (CPT 52356; principal; 2023-10-07 16:00)
DX: N20.1 Calculus of ureter (principal); K21.9 Gastro-esophageal reflux disease without esophagitis; F17.210 Nicotine dependence, cigarettes, uncomplicated; Z87.442 Personal history of urinary calculi; Z90.710 Acquired absence of both cervix and uterus; Z79.899 Other long term (current) drug therapy
CPT/HCPCS: 52356; 52352; C1726; C1769; C2617; J1170; J1956; J2704; J3010; Q9967

== ENCOUNTER → 2023-10-07 14:07 | Outpatient (BNV) | payer MEDICARE, SELFPAY | PROVIDERS: PCP Family Medicine; Visit Provider Urology | DX: N20.1 Calculus of ureter (principal) | CPT/HCPCS: 52356; 74420 ==

== ENCOUNTER 2023-10-24 08:06 | Outpatient (AMB) | payer MEDICARE, SELFPAY ==
--- NOTE | 2023-10-24 08:10 | A.OFFVIS_ITS ---
Intake Intake Visit Reasons: stent removal Intake Note: Patient presents today for Post Op Kidney Stones Removal: Meds- Ta,sulosin Allergies to Antibiotic- No Known Allergies Blood Thinner- None Sec Reporting Consultant Required: No Accompanied by: Self / Same As Patient Allergies tramadol Allergy (Verified 10/24/23 08:30) Unknown HPI HPI Comments History of Present Illness Details Silvia is a 63-year-old female who presents today to the office for a follow-up. 10/24/2023? She is followed today s/p left ureteroscopy laser lithotripsy, ureteral stent, 10/07/23. The grasper is out for repairs. I have discussed stent removal retrograde in OR tomorrow. She states she has been doing well. Review of chart: Last office visit: 10/06/2023?She is here today to established treatment for kidney stones and to discuss surgery. States she passed a kidney stone about 20 years ago. Patient has a past medical history of kidney stones, nicotine use, and history of hysterectomy. Disabled due to neck fracture. She was seen in ER and evaluated due to left sided abdominal pain. Patient states that she was treated with torodal which did relieve her pain. She reports mild nausea. CT scan was reviewed and noted a 7x4mm left mid ureteral stone, no renal calculi noted. 10/24/2023: Evaluation today?UA?Protein 1+, blood 3+, leuk trace 10/24/2023: Plan: cystoscopy left retrog rade, stent removal in OR. [facility] Medical History Neck fracture Family history of gastric cancer Chronic GERD Family history of colon cancer in mother Surgical History H/O colonoscopy H/O: hysterectomy Family History Mother Colon cancer Household Members Other:: 1 Are you a primary nurse behavioral health care to a significant other at home: No Patient Tobacco Use Status: Current everyday Tobacco user Tobacco use type: Cigarette Cigarette Packs Per Day: 0.5 Cigarettes Per Day: 10.0 Second Hand Smoke Exposure: No Advance Directives Date on File: 12/22/20 Current occupational status: disabled Review of Systems Const All systems reviewed & are unremarkable except as noted in HPI and below Reports no additional complaints Eyes Reports no additional complaints ENT Reports no additional complaints Card Denies dyspnea Resp Denies cough and Denies dyspnea GI Reports no additional complaints Reports no additional complaints Musc Reports no additional complaints Skin/Breast Denies rash and Denies unusual bruising Neuro Reports no additional complaints Psych Reports no additional complaints Endo Reports no additional complaints Kapil/Lymph Reports no additional complaints Aller/Immun Reports no additional complaints Results AMB Urinalysis, Automated UA Leukoctes 15 Kylie/uL Last Edit by ARI Damon on 10/24/23 08:32 UA Nitrite Negative Last Edit by ARI Damon on 10/24/23 08:32 UA Urobilinogen 0.2 mg/dL Last Edit by ARI Damon on 10/24/23 08:3 2 UA Protein 30 mg/dL Last Edit by ARI Damon on 10/24/23 08:32 1+ Fran Raya 10/24/23 08:32 UA pH 6.0 Last Edit by ARI Damon on 10/24/23 08:32 UA Blood 200 Bradford/uL Last Edit by ARI Damon on 10/24/23 08:32 3+ Fran Raya 10/24/23 08:32 UA Specific [place] 1.020 Last Edit by ARI Damon on 10/24/23 08: 32 UA Ketone Negative Last Edit by ARI Damon on 10/24/23 08:32 UA Bilirubin 0 mg/dL Last Edit by ARI Damon on 10/24/23 08:32 UA Glucose 0 mg/dL Last Edit by ARI Damon on 10/24/23 08:32 Results Reviewed Results Reviewed: Laboratory Last Values Urine pH (Auto) 6.0 10/24/23 08:31 Specific [place] (Auto) 1.020 10/24/23 08:31 Urine Protein (Auto) 30 mg/dL 10/24/23 08:31 Glucose (UA)(Auto) 0 mg/dL 10/24/23 08:31 Urine Ketones (Auto) Negative 10/24/23 08:31 Urine Blood (Auto) 200 Bradford/uL 10/24/23 08:31 Urine Nitrite (Auto) Negative 10/24/23 08:31 Urine Bilirubin (Auto) 0 mg/dL 10/24/23 08:31 Urine Urobilinogen (Auto) 0.2 mg/dL 10/24/23 08:31 Leukocyte Esterase (Auto) 15 Kylie/uL 10/24/23 08:31 Date of Service: 10/04/23 EXAMINATION: CT ABDOMEN AND PELVIS WITH CONTRAST CLINICAL INFORMATION: Left lower quadrant abdominal pain COMPARISON: None available. TECHNIQUE: Multidetector volumetric images were obtained from the superior aspect of the liver through the pubic symphysis following administration 85 mL of Omnipaque 350 intravenous contrast. Sagittal and coronal reformatted images were obtained on the technologist's workstation. Oral contrast: No This CT examination was performed using dose optimization techniques as appropriate, variously including the following: *Automated exposure control *Adjustment of mA and/or kV according to patient size (this includes techniques or standardized protocols for targeted exams where dose is matched to indication/reason for exam; i.e. extremities or head) *Use of iterative reconstruction technique DLP: 355 mGy-cm FINDINGS: LUNG BASES: The visualized lung bases are unremarkable. LIVER, GALLBLADDER, AND BILIARY TREE: The liver is normal in size, shape, and attenuation. No focal hepatic lesion or biliary ductal dilatation is present. The gallbladder is unremarkable with no evidence of radiopaque gallstones, gallbladder wall thickening, or obvious pericholecystic inflammatory changes. PANCREAS: Unremarkable. SPLEEN: Unremarkable. ADRENAL GLANDS: Unremarkable. KIDNEYS AND URETERS: Moderate left hydroureteronephrosis is present to the level of a 7 x 4 mm left mid ureteral calculus, located just above the level of the iliac crests. No intrarenal calculi are detected. The right kidney and ureter image normally. BLADDER: Unremarkable. GASTROINTESTINAL TRACT: The small and large bowel are unremarkable. The appendix is nonvisualized. ABDOMINAL WALL: No significant hernia is appreciated. LYMPH NODES: Normal. VASCULAR: Severe aortoiliac atherosclerosis is present with irregular plaque in the mid abdominal aorta. There is an infrarenal abdominal aortic aneurysm measuring 3.3 cm in maximal diameter. The proximal aortic lumen is narrowed to 13 x 12 mm at the level of the celiac origin. The right common iliac artery is markedly narrowed by plaque, with a luminal diameter of only 4 mm at the bifurcation. Plaque narrows the left proximal common iliac artery to 7 mm. PELVIC VISCERA: Unremarkable. OSSEOUS STRUCTURES: Moderate to advanced degenerative changes are evident in the lumbar spine. There are no suspicious bone lesions. IMPRESSION: 1. Moderate left hydroureteronephrosis to the level of a 7-4 mm ovoid left mid ureteral calculus. 2. Advanced aortoiliac atherosclerosis, with irregular plaque in the upper and mid abdominal aorta and severe luminal narrowing of the right and to a lesser extent left proximal common iliac arteries. The proximal abdominal aorta is narrowed by atherosclerotic plaque. 3. Abdominal aortic aneurysm measuring 3.3 cm. Best practice recommendations include follow up every 3 years. Assessment & Plan Assessment & Plan (1) Ureteral calculus, left: Code(s): N20.1 - Calculus of ureter (2) Hydronephrosis: Code(s): N13.30 - Unspecified hydronephrosis Orders: Orders AMB Urinalysis Automated Today Z13.9 - Encounter for screening, unspecified Patient Instructions: The patient had an opportunity to ask questions regarding treatment plan. All questions were answered. Imaging, Laboratory studies and physical exam results were discussed and reviewed in detail. No major barriers to understanding were identified. The patient expressed understanding and agreement with the above treatment plan.? ? ? The patient is aware they should contact our office by phone for worsening of their current condition or the appearance of new symptoms. Compliance is encouraged with any medications and followup testing that is ordered.? ? ? It is a privilege to be allowed the opportunity to participate in the urologic care of your patient. If you have any questions or concerns regarding treatment for the above conditions please do not hesitate to contact me. The office telephone contact is [phone].? ? ? This note is constructed in part using voice recognition software. While every effort has been made to ensure accuracy community service worker errors may have been included.? ? ? Yours sincerely,? ? ? Emma Sinclair MD? Coding Level of Care Code Est Pt Level 3 (16611) Diagnoses Ureteral calculus, left N20.1 Hydronephrosis N13.30
== END 2023-10-24 08:54 | disposition home or self-care (01) ==
PROVIDERS: PCP Family Medicine; Visit Provider Urology
DX: N20.1 Calculus of ureter (principal); N13.30 Unspecified hydronephrosis; Z13.9 Encounter for screening, unspecified
CPT/HCPCS: 99213

== ENCOUNTER → 2023-10-24 08:06 | Outpatient (BNVA) | payer MEDICARE, SELFPAY | PROVIDERS: PCP Family Medicine; Visit Provider Urology | DX: N20.1 Calculus of ureter (principal); N13.30 Unspecified hydronephrosis | CPT/HCPCS: 81003; 99212 ==

== ENCOUNTER 2023-10-25 13:22 | Day surgery (SDC) | payer MEDICARE, SELFPAY ==
[2023-10-25 13:26] VITALS: BMI 17.7
[2023-10-25 13:53] VITALS: BP 139/82; PULSE 83; RESP 16; TEMP 36.1; O2SAT 96
--- NOTE | 2023-10-25 14:32 | PC.NURSE ---
Pre op care transitioned to Sherrie WATKINS (PACU)
--- NOTE | 2023-10-25 14:51 | MHC.SHP ---
Pre-Procedural Eval Section A Date of Service: 10/25/23 The patient is an INPATIENT: No The History & Physical has been completed within 30 days and I have reviewed it.: Yes Section B Chief Complaint: Calculus of kidney Allergies: Allergies Allergy/AdvReac Type Severity Reaction Status Date / Time tramadol Allergy Unknown Verified 10/25/23 13:33 Plan Diagnosis/Plan: Unchanged I have reviewed the history and physical and performed a pertinent physical examination on my patient. No changes have occurred unless specified. Cystoscopy retrograde left ureteral stent removal Time Spent With Patient Time: Total time managing care of this patient today ____ minutes.
--- NOTE | 2023-10-25 15:14 | HO.ANESPROP2 ---
[facility] Active Problems Active Problems: All Active Problems (Updated 10/06/23 @ 10:20 by Emma Sinclair MD) Flank pain (Acute) Hydronephrosis (Acute) Ureteral calculus, left (Acute) Diverticulosis of colon (Acute) Encounter for screening colonoscopy (Acute) Chronic GERD (Acute) Past Medical History Medical History Neck fracture Family history of gastric cancer Chronic GERD Family history of colon cancer in mother Family History Family History Mother Colon cancer Family history of problems with anesthesia: No Surgical History Surgical History H/O colonoscopy H/O: hysterectomy History of Problems with Anesthesia: No Social History Social History Household Members Other:: 1 Are you a primary animal care supervisor to a significant other at home: No Patient Tobacco Use Status: Current everyday Tobacco user Tobacco use type: Cigarette Cigarette Packs Per Day: 0.5 Cigarettes Per Day: 10 Second Hand Smoke Exposure: No Use of substances other than those prescribed or required for medical reasons: Yes Substance Use Type Other:: Smoke Substance Use Frequency: Daily Are you DNR?: No Advance Directives: No Advance Directives Information Provided: Yes Advance Directives Date on File: 12/22/20 Current occupational status: disabled Meds Allergies Allergy/AdvReac Type Severity Reaction Status Date / Time tramadol Allergy Unknown Verified 10/25/23 13:33 Home Medications Medication Instructions Recorded Confirmed Last Taken Type cyclobenzaprine 5 mg tablet 5 mg PO BEDTIME 10/22/20 10/06/23 Unknown History omeprazole magnesium 20 mg 20 mg PO DAILY 10/22/20 10/06/23 Unknown History tablet,delayed release (Prilosec OTC) Exam Height,Weight and Vital Signs: Height 5 ft 3 in Weight 45.359 kg Last Vital Signs Temp 97.0 F 10/25/23 13:53 Pulse 83 10/25/23 13:53 Resp 16 10/25/23 13:53 BP 139/82 10/25/23 13:53 Pulse Ox 96 10/25/23 13:53 O2 Del Method Room Air 10/25/23 13:53 Airway Mallampati Class: II TM Dist: >3cm Neck ROM: Full Denture: Upper and Lower Assessment and Plan Assessment Anesthesia Assessment: Anesthesia Plan Discussed and Chart Reviewed Final Anesthetic Review Family History of Problems with Anesthesia: No History of Problems with Anesthesia: No NPO: Yes ASA Class: II Final Preanesthetic Review: No Changes in Pt Med Stat, Meds/Allgs Chart Reviewed, Consent Obtained/Reviewed and Anes Risks/Benef Reviewed Patient Risk: Intermediate Procedure Risk: Low Anesthetic Plan Anesthetic Plan: MAC: Disposition: Standard PACU
[2023-10-25 15:27] VITALS: BP 156/87; PULSE 88; RESP 18; TEMP 36.3; O2SAT 96
[2023-10-25 15:42] VITALS: BP 165/80; PULSE 84; RESP 16; TEMP 37.1; O2SAT 100
--- NOTE | 2023-10-25 15:42 | W.PM.OPN ---
Operative Note Operative Note Date of Service: 10/25/23 Narrative: PreOperative Diagnosis:?? s/p Left ureteral stent Post Operative Diagnosis:?? ?s/p Left ureteral stent Procedure:- cystoscopy, Left stent removal Surgeon:?Dr Emma Sinclair Anesthesia:? MAC Indications for procedure: s/p left ureteroscopy laser lithotripsy ureteral stone, stent insertion for stent removal today Procedure: After informed consent was verified the patient was brought to the operating placed on the OR table in supine position.? IV sedation was administered per protocol.? The patient was placed in lithotomy position, prepped and draped in the usual sterile fashion.? Safety pause time-out and side of surgery confirmed.? 2% lidocaine jelly placed transurethrally. A 22 [place]orese cystoscope was inserted transurethrally, The bladder was visualized.? Both ureteric orifices were in normal position. Mild edema left ureteral orifice which is expected, distal end of ureteral stent visualized. The grasping forceps were used and the stent was removed without difficulty. The bladder was emptied.? The rigid cystoscope was removed. ? The patient tolerated the procedure well and was brought to the recovery room in stable condition. Complications: None Drains: none
== END 2023-10-25 15:58 | disposition home or self-care (01) ==
PROVIDERS: PCP Family Medicine; Visit Provider Urology
PROC: (CPT 52310; principal; 2023-10-25 15:30)
DX: N20.1 Calculus of ureter (principal); K21.9 Gastro-esophageal reflux disease without esophagitis; Z80.0 Family history of malignant neoplasm of digestive organs; Z79.899 Other long term (current) drug therapy; Z79.52 Long term (current) use of systemic steroids; Z88.8 Allergy status to other drugs, medicaments and biological substances; F17.210 Nicotine dependence, cigarettes, uncomplicated
CPT/HCPCS: 52310; J2704; J3010

== ENCOUNTER → 2023-10-25 13:22 | Outpatient (BNV) | payer MEDICARE, SELFPAY | PROVIDERS: PCP Family Medicine; Visit Provider Urology | DX: Z96.0 Presence of urogenital implants (principal) | CPT/HCPCS: 52310 ==

== ENCOUNTER 2023-12-08 11:28 | Outpatient (REF) | payer MEDICARE, SELFPAY ==
--- NOTE | ~2023-12-08 | US_ITS ---
EXAMINATION: US RETROPERITONEAL LIMITED (RENAL ONLY) CLINICAL INFORMATION: Status post ureteroscopy laser lithotripsy. COMPARISON: CT abdomen and pelvis 10/04/2023. TECHNIQUE: Real-time imaging of the kidneys. FINDINGS: RIGHT KIDNEY: 10.0 x 3.7 x 4.2 cm (SAG x AP x TRV). The kidney is normal in size, contour, and echogenicity. Renal cortical thickness is normal. No calculi or focal parenchymal lesions. No hydronephrosis. LEFT KIDNEY: 10.3 x 5.3 x 4.3 cm (SAG x AP x TRV). The kidney is normal in size, contour, and echogenicity. Renal cortical thickness is normal. No calculi or focal parenchymal lesions. Mild prominence of the renal pelvis without hydronephrosis. US/US renal BI IMPRESSION: Mild prominence of the left renal pelvis without hydronephrosis may be sequela of prior stone disease. No visible nephrolithiasis.
== END 2023-12-08 11:29 | disposition home or self-care (01) ==
LOC: HO.US 11:28
PROVIDERS: PCP Family Medicine; Visit Provider Urology
DX: N20.1 Calculus of ureter (principal)
CPT/HCPCS: 76775

== ENCOUNTER 2023-12-22 10:07 | Outpatient (AMB) | payer MEDICARE, SELFPAY ==
--- NOTE | 2023-12-22 10:09 | A.OFFVIS_ITS ---
Intake Intake Visit Reasons: 8w/US/Litholink(set) Intake Note: Patient presents today for a follow-up on US & Litholink 24 hr urine collection results: Meds- Tamsulosin Allergies to Antibiotic- No Known Allergies Blood Thinner- None Dietary Server Required: No Accompanied by: Self / Same As Patient Allergies tramadol Allergy (Verified 12/22/23 10:10) Unknown HPI HPI Comments History of Present Illness Details Silvia is a 63-year-old female who presents today to the office for a follow-up. 12/22/23--Discussed 24 hour urine results : Total volume 1.09 L, Calcium 293 mg; Oxalate 16 mg, Sodium 193, Citrate 268 mg. Instructed on importance of fluid intake, Low oxalate diet, low sodium diet. Discussed that it is important to increase her fluid volume intake and cut back on her sodium intake. Reviewed renal US - mild prominence left, no hydro no stones 30 minutes spent in review of records pe rtaining to this visit and including [id number] discussion with the patient and documentation of this visit. Review of chart 10/24/2023? She is followed today s/p left ureteroscopy laser lithotripsy, ureteral stent, 10/07/23. The grasper is out for repairs. I have discussed stent removal retrograde in OR tomorrow. She states she has been doing well. 10/06/2023?She is here today to [facility] treatment for kidney stones and to discuss surgery. States she passed a kidney stone about 20 years ago. Patient has a past medical history of kidney stones, nicotine use, and history of hysterectomy. Disabled due to neck fracture. She was seen in ER and evaluated due to left sided abdominal pain. Patient states that she was treated with torodal which did relieve her pain. She reports mild nausea. CT scan was reviewed and noted a 7x4mm left mid ureteral stone, no renal calculi noted. 12/22/23--PLAN--I have discussed at lengt h diet modification to decrease risk of forming more kidney stones. I have discussed low oxalate diet and specific foods to avoid including certain green leafy vegetables, chocalate, nuts, tea, beets, rubarb; low sodium, decreased use of animal protein and the importance of hydration drinking up to 2-2.5 liters of fluids and use of adding lemon to water to increase citrate in the diet. A pamphlet is also provided today. Repeat 24 hr urine in 6 months [facility] Medical History (Updated 12/22/23 @ 23:21 by Emma Sinclair MD) Neck fracture Family history of gastric cancer Chronic GERD Family history of colon cancer in mother Surgical History (Updated 12/22/23 @ 10:11 by ARI Damon) Hx of lithotripsy H/O colonoscopy H/O: hysterectomy Family History Mother Colon cancer Social History Household Members Other:: 1 Are you a primary managed care provider to a significant other at home: No Patient Tobacco Use Status: Current everyday Tobacco user Tobacco use type: Cigarette Cigarette Packs Per Day: 0.5 Cigarettes Per Day: 10 Second Hand Smoke Exposure: No Advance Directives Date on File: 12/22/20 Current occupational status: disabled Review of Systems Const All systems reviewed & are unremarkable except as noted in HPI and below Reports no additional complaints Eyes Reports no additional complaints ENT Reports no additional complaints Card Denies dyspnea Resp Denies cough and Denies dyspnea GI Reports no additional complaints Reports no additional complaints Musc Reports no additional complaints Skin/Breast Denies rash and Denies unusual bruising Neuro Reports no additional complaints Psych Reports no additional complaints Endo Reports no additional complaints Kapil/Lymph Reports no additional complaints Aller/Immun Reports no additional complaints Results AMB Urinalysis, Automated UA Leukoctes 0 Kylie/uL Last Edit by ARI Damon on 12/22/23 10:25 UA Nitrite Negative Last Edit by ARI Damon on 12/22/23 10:25 UA Urobilinogen 0.2 mg/dL Last Edit by ARI Damon on 12/22/23 10:2 5 UA Protein 0 mg/dL Last Edit by ARI Damon on 12/22/23 10:25 UA pH 5.5 Last Edit by ARI Damon on 12/22/23 10:25 UA Blood 25 Bradford/uL Last Edit by ARI Damon on 12/22/23 10:25 1+ Fran Raya 12/22/23 10:25 UA Specific [place] 1.020 Last Edit by ARI Damon on 12/22/23 10: 25 UA Ketone Negative Last Edit by ARI Damon on 12/22/23 10:25 UA Bilirubin 0 mg/dL Last Edit by ARI Damon on 12/22/23 10:25 UA Glucose 0 mg/dL Last Edit by ARI Damon on 12/22/23 10:25 Results Reviewed Results Reviewed: Laboratory Last Values Urine pH (Auto) 5.5 12/22/23 10:21 Specific [place] (Auto) 1.020 12/22/23 10:21 Urine Protein (Auto) 0 mg/dL 12/22/23 10:21 Glucose (UA)(Auto) 0 mg/dL 12/22/23 10:21 Urine Ketones (Auto) Negative 12/22/23 10:21 Urine Blood (Auto) 25 Bradford/uL 12/22/23 10:21 Urine Nitrite (Auto) Negative 12/22/23 10:21 Urine Bilirubin (Auto) 0 mg/dL 12/22/23 10:21 Urine Urobilinogen (Auto) 0.2 mg/dL 12/22/23 10:21 Leukocyte Esterase (Auto) 0 Kylie/uL 12/22/23 10:21 Assessment & Plan Assessment & Plan (1) Hydronephrosis: Code(s): N13.30 - Unspecified hydronephrosis (2) Kidney calculi: Code(s): N20.0 - Calculus of kidney (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 All questions were answered. Imaging, Laboratory studies and physical exam results were discussed and reviewed in detail. No major barriers to understanding were identified. The patient expressed understanding and agreement with the above treatment plan. The patient is aware they should contact our office by phone for worsening of their current condition or the appearance of new symptoms. Compliance is encouraged with any medications and followup testing that is ordered. It is a privilege to be allowed the opportunity to participate in the urologic care of your patient. If you have any questions or concerns regarding treatment for the above conditions please do not hesitate to contact me. The office telephone contact is [phone]. This note is constructed in part using voice recognition software. While every effort has been made to ensure accuracy clinical specialist medical device errors may have been included. Yours sincerely, Emma Sinclair MD Coding Level of Care Code Est Pt Level 4 (35080) Diagnoses Hydronephrosis N13.30 Kidney calculi N20.0 Hypercalciuria R82.994
== END 2023-12-22 10:44 | disposition home or self-care (01) ==
PROVIDERS: PCP Family Medicine; Visit Provider Urology
DX: N13.30 Unspecified hydronephrosis (principal); N20.0 Calculus of kidney; R82.994 Hypercalciuria
CPT/HCPCS: 99214

== ENCOUNTER → 2023-12-22 10:07 | Outpatient (BNVA) | payer MEDICARE, SELFPAY | PROVIDERS: PCP Family Medicine; Visit Provider Urology | DX: N13.30 Unspecified hydronephrosis (principal); N20.0 Calculus of kidney; R82.994 Hypercalciuria | CPT/HCPCS: 81003; 99212 ==